=== PATIENT | male | born 1935 | race Caucasian/White ===

== ENCOUNTER 2017-06-16 16:19 | Inpatient (IN) | payer MEDICARE, BC ==
[~2017-06-16] VITALS: Ht 167.6 cm; Wt 70.0 kg
[~2017-06-16 16:19] MED LIST: ASPIRIN EC81 MG PO; BAYER CHEWABLE81 MG PO; CIPRO250 MG PO; CLARITIN 10 MG10 MG PO; DILANTIN100 MG PO; FLAGYL250 MG PO; FLAGYL500 MG PO; FUROSEMIDE20 MG PO; IPRAT-ALBUT 0.5-3 ML UPD; K-TAB10 MEQ PO; LAMICTAL ODT100 MG PO; LEXAPRO20 MG PO; PROTONIX20 MG PO; XANAX1 MG PO
[2017-06-16] MEDS ORDERED: LAMICTAL100 MG PO (16:52)
[2017-06-16] MEDS ORDERED: DILANTIN100 MG PO (16:53)
[2017-06-16] MEDS ORDERED: FLOMAX0.4 MG PO (16:54)
[2017-06-16 17:08] LABS: BASOPHILS 0.2 % (0-2); EOSINOPHILS 5.5 % (0-7); HEMATOCRIT 34.1 % (42.0-54.0); HEMOGLOBIN 11.4 g/dL (13.5-17.5); IMMATURE GRANULOCYTES 0.1 % (0-5); LYMPHOCYTES 20.3 % (15-50); MCH 31.5 pg (26.0-34.0); MCHC 33.4 g/dL (31.0-37.0); MCV 94.2 fL (80.0-100.0); MONOCYTES 12.4 % (2-11); NEUTROPHILS 61.5 % (40-80); RBC 3.62 10x6/uL (4.20-6.10); WBC 8.9 10x3/uL (4.8-10.8)
[2017-06-16 17:24] LABS: ALBUMIN 3.4 g/dL (3.4-5.0); ANION GAP 9.4 mmol/L (8-16); BILIRUBIN - TOTAL 0.4 mg/dL (0.2-1.3); CARBON DIOXIDE 31.8 mmol/L (21.0-32.0); CREATININE - SERUM 1.1 mg/dL (0.6-1.3); POTASSIUM - SERUM 4.2 mmol/L (3.5-5.1); PROTEIN - SERUM 6.9 g/dL (6.4-8.2)
[2017-06-16 17:25] LABS: PLATELET COUNT 192 10x3/uL (130-400)
[2017-06-16 17:27] LABS: PHENYTOIN (DILANTIN) 27.1 ug/mL (10.0-20.0)
[2017-06-16 18:04] VITALS: BP 143/63; BMI 24.7
[2017-06-16 19:00] VITALS: BP 120/54
[2017-06-16 22:22] LABS: APPEARANCE CLEAR (CLEAR); BILIRUBIN NEGATIVE (NEGATIVE); COLOR YELLOW (YELLOW); GLUCOSE NEGATIVE (NEGATIVE); KETONE NEGATIVE (NEGATIVE); LEUKOCYTE ESTERASE NEGATIVE (NEGATIVE); NITRITE NEGATIVE (NEGATIVE); PROTEIN NEGATIVE (NEGATIVE); UROBILINOGEN NORMAL (NORMAL)
[2017-06-17 04:00] VITALS: BP 141/64
[2017-06-17 07:50] VITALS: BP 134/56
[2017-06-17 11:17] VITALS: Ht 167.6 cm; Wt 70.0 kg
[2017-06-17 11:19] VITALS: BP 123/61
[2017-06-17 15:46] VITALS: BP 101/43
[2017-06-17 19:00] VITALS: BP 123/49
[2017-06-18 04:00] VITALS: BP 136/59
[2017-06-18 07:00] VITALS: BP 114/48
[2017-06-18 12:55] VITALS: BP 124/55
[2017-06-18 16:58] VITALS: BP 145/65
[2017-06-18 19:00] VITALS: BP 147/55
[2017-06-19] VITALS: BP 131/50
[2017-06-19 04:00] VITALS: BP 105/57
[2017-06-19 09:00] VITALS: BP 113/57
[2017-06-19 13:27] VITALS: BP 134/59
[2017-06-19 17:11] LABS: LAMOTRIGINE (LAMICTAL) 1.1 ug/mL (2.0-20.0)
--- NOTE | 2017-06-20 06:30 | EEG ---
PATIENT:AZUL HUNTER DATE OF SERVICE: 06/16/17 MEDICAL RECORD: [id number] DATE OF : 37 LOCATION:D.213 D.M2 ADMISSION DATE: 06/16/17 REFERRING PHYSICIAN: INTERPRETING PHYSICIAN: MARIANO DUNNE MD DATE OF SERVICE: 06/17/2017 Referred as an inpatient by myself, currently in room 2137. ELECTROENCEPHALOGRAM NUMBER: [id number]. DATE OF EXAMINATION: 06/17/2017 at 1:15 p.m. TECHNICAL DATA: This electroencephalographic recording consisted of approximately 20 minutes of data collection utilizing the international 10/20 system of electrode placement and both referential and non-referential montages. Sixteen channels of electrocerebral recording are accompanied by a 17th channel dedicated to the electrocardiographic rhythm and to 2 channels of electromyographic recording. Recording is performed in the awake and sleep states utilizing activation by photic stimulation. ELECTROENCEPHALOGRAPHIC DATA: The awake state comprises approximately 60% of the recorded electrocerebral activity. Electromyographic artifact is prominent and rapid eye movements are seen. The posterior dominant background consists of a symmetric, semi-rhythmic, waxing and waning 8-9 Hz alpha activity, which is suppressed by eye opening. The drowsy state comprises approximately 20% of the recorded electrocerebral activity. Electromyographic artifact is diminished and rapid eye movements are not seen. The posterior dominant background is relatively suppressed. The transition to stage II sleep is heralded by the appearance of typical 15 Hz sleep spindles. No abnormal or focal slowing is identified. No epileptiform discharges are seen. Photic stimulation induces no abnormal change in the recorded electrocerebral activity. Note is made that the electrocardiographic rhythm demonstrates a considerable amount of what appears to be ventricular ectopy. The patient does experience a typical episode of sudden "tensing up" that is reported by the patient and family as seizure. This is accompanied by no change in the recorded electrocerebral activity. INTERPRETATION: Normal (awake and asleep). This is a normal electroencephalographic recording. Note is made that the patient has an episode of "tensing up" consistent with the episodes they have been describing as seizures over the last several days. This is not accompanied by electroencephalographic change. There was also made, that the patient has significant ventricular ectopy. TRANSINT:[id number] Voice Confirmation ID: [id number] DOCUMENT ID: [id number] ELECTROENCEPHALOGRAM REPORT [id number] AZUL HUNTER DONALD P MD at 0630 CC: [id number] DICTATION DATE: 06/18/17825 PHARMACIST MANAGER: 06/18/17 0847 DIS IN 06/19/17 [facility] [address] [place] [address]
== END 2017-06-19 18:21 | disposition home or self-care (01) | DRG 101 ==
LOC: D.M2 16:19
PROVIDERS: ADMIT Family Medicine
DX: G40.209 Localization-related (focal) (partial) symptomatic epilepsy and epileptic syndromes with complex partial seizures, not intractable, without status epilepticus (principal); J44.9 Chronic obstructive pulmonary disease, unspecified; E78.5 Hyperlipidemia, unspecified; I35.0 Nonrheumatic aortic (valve) stenosis; F32.9 Major depressive disorder, single episode, unspecified; R41.0 Disorientation, unspecified; Z86.73 Personal history of transient ischemic attack (TIA), and cerebral infarction without residual deficits